=== PATIENT | male | born 1935 | race Caucasian/White ===

== ENCOUNTER 2018-09-26 12:52 | Emergency (ER) | payer MEDICARE, BC ==
[~2018-09-26] VITALS: Ht 165.1 cm; Wt 86.2 kg
[~2018-09-26 12:52] MED LIST: ALBU90OI INH; ALLO100 PO; ATEN50 PO; ATOR20 PO; AZIT500 PO; BIMA.03OPS OD; CARV25 PO; CODGUAEL PO; COLCHICINE0.6 MG PO; DOXE0.5 PO; DOXY100; LISI20 PO; LOSA50 PO; METO50ER PO; MULVIT PO; SPACER IH; WARF2 PO
[2018-09-26 13:20] LABS: BASOPHILS ABSOLUTE AUTO 0.05 K/mm3 (0.00-0.23); BASOPHILS PERCENT AUTO 1 % (0-2); EOSINOPHILS ABSOLUTE AUTO 0.24 K/mm3 (0.00-0.68); EOSINOPHILS PERCENT AUTO 3 % (0-6); Hematocrit 45.2 % (37.0-53.0); Hemoglobin 15.2 g/dL (13.5-17.5); IMMATURE GRAN ABSOLUTE AUTO 0.02 K/mm3 (0.00-0.10); IMMATURE GRAN PERCENT AUTO 0 % (0-1); LYMPHOCYTES ABSOLUTE AUTO 1.23 K/mm3 (0.84-5.20); LYMPHOCYTES PERCENT AUTO 13 % (21-46); MONOCYTES ABSOLUTE AUTO 0.63 K/mm3 (0.16-1.47); MONOCYTES PERCENT AUTO 7 % (4-13); Mean Corpuscular HGB 30.8 pg (26.0-34.0); Mean Corpuscular HGB Conc 33.6 g/dL (31.5-36.5); Mean Corpuscular Volume 92 fL (80-100); Mean Platelet Volume 10.5 fL (9.1-12.4); NEUTROPHILS ABSOLUTE AUTO 7.28 K/mm3 (1.96-9.15); NEUTROPHILS PERCENT AUTO 77 % (41-73); Platelet Count 158 K/mm3 (150-400); RDW Standard Deviation 43.9 fL (35.1-46.3); Red Blood Cell Count 4.94 M/mm3 (4.30-5.90); White Blood Cell Count 9.45 K/mm3 (4.00-11.30)
[2018-09-26 13:36] LABS: International Normalized Ratio 2.65; Prothrombin Time Results 25.8 Sec (9.7-11.5)
[2018-09-26 13:43] LABS: Albumin, Blood 3.6 g/dL (3.4-5.0); Bilirubin, Total 1.2 mg/dL (0.1-1.0); Bun/Creatinine Ratio 17.3 (12.0-20.0); Calcium, Blood 8.5 mg/dL (8.5-10.1); Creatinine, Blood 1.39 mg/dL (0.60-1.20); Globulin, Blood 3.7 g/dL (2.2-4.0); Potassium, Blood 4.5 mmol/L (3.5-5.5); Total Protein, Blood 7.3 g/dL (6.4-8.2)
[2018-09-26 14:01] LABS: Source, Urine Clean Catch
[2018-09-26 14:04] LABS: Appearance, Urine Cloudy (Clear); Bilirubin, Urine Neg (Neg); Blood, Urine 5+ (Neg); Color, Urine Brown (P-Yellow); Glucose Qualitative, Urine Neg (Neg); Ketones, Urine 1+ (Neg); Leukocyte Esterase, Urine 3+ (Neg); Nitrite, Urine Pos (Neg); Protein, Urine 4+ (Neg); Specific Gravity, Urine 1.015 (1.003-1.022); Urobilinogen, Urine NORM (Normal)
[2018-09-26 14:27] LABS: Bacteria Few /hpf; Red Blood Cells, Urine TNTC /hpf (0-2); Squamous Epithelial Cells Few /hpf (Few); White Blood Cells, Urine TNTC /hpf (0-5)
[2018-09-26] MEDS ORDERED: CEPH500 PO (14:48)
== END 2018-09-26 15:06 | disposition home or self-care (01) ==
LOC: ER 12:52
PROVIDERS: Physician Assistant
DX: N39.0 Urinary tract infection, site not specified (principal); Z79.01 Long term (current) use of anticoagulants; Z79.899 Other long term (current) drug therapy; I10 Essential (primary) hypertension; E78.5 Hyperlipidemia, unspecified; Z95.1 Presence of aortocoronary bypass graft
CPT/HCPCS: 36415; 80053; 81001; 85025; 85610; 87077; 87086; 87186; 99283

== ENCOUNTER 2018-10-09 09:06 | Emergency (ER) | payer MEDICARE, BC ==
[~2018-10-09] VITALS: Ht 165.1 cm; Wt 68.0 kg
[~2018-10-09 09:06] MED LIST changes: +CEPH500 PO
[2018-10-09 09:31] LABS: Source, Urine Catheter
[2018-10-09] MEDS ORDERED: NITR100CA (09:33)
[2018-10-09 09:36] LABS: BASOPHILS ABSOLUTE AUTO 0.06 K/mm3 (0.00-0.23); BASOPHILS PERCENT AUTO 1 % (0-2); EOSINOPHILS ABSOLUTE AUTO 0.26 K/mm3 (0.00-0.68); EOSINOPHILS PERCENT AUTO 3 % (0-6); Hematocrit 46.3 % (37.0-53.0); Hemoglobin 15.4 g/dL (13.5-17.5); IMMATURE GRAN ABSOLUTE AUTO 0.02 K/mm3 (0.00-0.10); IMMATURE GRAN PERCENT AUTO 0 % (0-1); LYMPHOCYTES ABSOLUTE AUTO 1.81 K/mm3 (0.84-5.20); LYMPHOCYTES PERCENT AUTO 22 % (21-46); MONOCYTES ABSOLUTE AUTO 0.62 K/mm3 (0.16-1.47); MONOCYTES PERCENT AUTO 8 % (4-13); Mean Corpuscular HGB 30.1 pg (26.0-34.0); Mean Corpuscular HGB Conc 33.3 g/dL (31.5-36.5); Mean Corpuscular Volume 91 fL (80-100); Mean Platelet Volume 10.4 fL (9.1-12.4); NEUTROPHILS ABSOLUTE AUTO 5.49 K/mm3 (1.96-9.15); NEUTROPHILS PERCENT AUTO 67 % (41-73); Platelet Count 208 K/mm3 (150-400); RDW Coefficient Variation 12.9 % (11.7-14.2); RDW Standard Deviation 42.2 fL (35.1-46.3); Red Blood Cell Count 5.11 M/mm3 (4.30-5.90); White Blood Cell Count 8.26 K/mm3 (4.00-11.30)
[2018-10-09 09:45] LABS: Albumin, Blood 3.7 g/dL (3.4-5.0); Albumin/Globulin Ratio 0.9 (0.8-1.8); Bilirubin, Total 1.1 mg/dL (0.1-1.0); Bun/Creatinine Ratio 25.7 (12.0-20.0); Calcium, Blood 8.4 mg/dL (8.5-10.1); Creatinine, Blood 1.91 mg/dL (0.60-1.20); Potassium, Blood 4.3 mmol/L (3.5-5.5); Total Protein, Blood 7.7 g/dL (6.4-8.2)
[2018-10-09 09:46] LABS: Bilirubin, Urine Neg (Neg); Blood, Urine 5+ (Neg); Glucose Qualitative, Urine Neg (Neg); Ketones, Urine 1+ (Neg); Leukocyte Esterase, Urine Neg (Neg); Nitrite, Urine Neg (Neg); Protein, Urine 4+ (Neg); Specific Gravity, Urine 1.015 (1.003-1.022); Urobilinogen, Urine NORM (Normal)
[2018-10-09 09:50] LABS: International Normalized Ratio 2.06; Prothrombin Time Results 20.4 Sec (9.7-11.5)
[2018-10-09 10:24] LABS: Appearance, Urine Bloody (Clear); Color, Urine Red (P-Yellow)
[2018-10-09 10:25] LABS: Red Blood Cells, Urine TNTC /hpf (0-2); Squamous Epithelial Cells Not Seen /hpf (Few); White Blood Cells, Urine 0-2 /hpf (0-5)
[2018-10-09 10:26] LABS: Bacteria Few /hpf
[2018-10-09] MEDS ORDERED: Flomax0.4 MG PO (10:50)
== END 2018-10-09 11:19 | disposition home or self-care (01) ==
LOC: ER 09:06
PROVIDERS: Emergency Medicine
DX: R33.9 Retention of urine, unspecified (principal); R31.9 Hematuria, unspecified; Z79.899 Other long term (current) drug therapy; Z79.01 Long term (current) use of anticoagulants; I10 Essential (primary) hypertension; I48.91 Unspecified atrial fibrillation; E78.5 Hyperlipidemia, unspecified
CPT/HCPCS: 51702; 51798; 80053; 81001; 85025; 85610; 99283

== ENCOUNTER → 2018-11-03 | Outpatient (CLI) | payer MEDICARE, BC ==
[~2018-11-03] MED LIST changes: +Flomax0.4 MG PO; +NITR100CA
== END | disposition home or self-care (01) ==
LOC: LAB SHORT 15:26 → PLD 15:26
DX: D48.5 Neoplasm of uncertain behavior of skin (principal)
CPT/HCPCS: 88305

== ENCOUNTER 2019-02-13 17:32 | Inpatient (IN) | payer MEDICARE, BC ==
[~2019-02-13] VITALS: Ht 165.1 cm; Wt 87.5 kg
[2019-02-13 18:23] LABS: BASOPHILS ABSOLUTE AUTO 0.06 K/mm3 (0.00-0.23); BASOPHILS PERCENT AUTO 0 % (0-2); EOSINOPHILS ABSOLUTE AUTO 0.01 K/mm3 (0.00-0.68); EOSINOPHILS PERCENT AUTO 0 % (0-6); Hematocrit 43.3 % (37.0-53.0); Hemoglobin 14.4 g/dL (13.5-17.5); IMMATURE GRAN ABSOLUTE AUTO 0.57 K/mm3 (0.00-0.10); IMMATURE GRAN PERCENT AUTO 3 % (0-1); LYMPHOCYTES ABSOLUTE AUTO 1.91 K/mm3 (0.84-5.20); LYMPHOCYTES PERCENT AUTO 9 % (21-46); MONOCYTES ABSOLUTE AUTO 1.71 K/mm3 (0.16-1.47); MONOCYTES PERCENT AUTO 8 % (4-13); Mean Corpuscular HGB 30.1 pg (26.0-34.0); Mean Corpuscular HGB Conc 33.3 g/dL (31.5-36.5); Mean Corpuscular Volume 91 fL (80-100); Mean Platelet Volume 10.6 fL (9.1-12.4); NEUTROPHILS ABSOLUTE AUTO 17.86 K/mm3 (1.96-9.15); NEUTROPHILS PERCENT AUTO 81 % (41-73); NRBC ABSOLUTE 0.05 K/mm3 (0.00-0.02); NRBC Auto 0.2 /100 WBC (0.0-0.2); Platelet Count 173 K/mm3 (150-400); RDW Coefficient Variation 12.7 % (11.7-14.2); RDW Standard Deviation 41.8 fL (35.1-46.3); Red Blood Cell Count 4.78 M/mm3 (4.30-5.90); White Blood Cell Count 22.12 K/mm3 (4.00-11.30)
[2019-02-13 18:38] LABS: Albumin, Blood 3.2 g/dL (3.4-5.0); Albumin/Globulin Ratio 0.8 (0.8-1.8); Bilirubin, Total 2.1 mg/dL (0.1-1.0); Calcium, Blood 8.2 mg/dL (8.5-10.1); Creatinine, Blood 2.61 mg/dL (0.60-1.20); Free Thyroxine 1.21 ng/dL (0.70-1.60); Magnesium, Blood 1.7 mg/dL (1.6-2.4); Total Protein, Blood 7.2 g/dL (6.4-8.2)
[2019-02-13 18:46] LABS: International Normalized Ratio 2.17; Prothrombin Time Results 21.4 Sec (9.7-11.5)
[2019-02-13] MEDS ORDERED: Xalatan2.5 ML BOTHEYES (18:49)
[2019-02-13] MEDS ORDERED: TAMS.4ER PO (18:50)
[2019-02-13 18:57] LABS: Creatine Kinase MB 37.4 ng/mL (0.0-3.6); Thyroid Stimulating Hormone 3.79 uIU/mL (0.360-4.800)
[2019-02-13 19:08] LABS: Creatine Kinase MB Index 2.3 (0.0-4.0); Troponin I 8.83 ng/mL (0.000-0.040)
--- NOTE | 2019-02-13 20:47 | NUR ---
PATIENT ARRIVED TO ICU 10 VIA GURNEY INTUBATED WITH TRAVEL VENT, AND RT AT BEDSIDE. ADMIT WITH DX OF CARDIOGENIC SHOCK POST CODE IN ER. DOCTOR GUPTA IN TO SEE PATIENT AND DOCTOR ESPARZA AND DOCTOR SANCHEZ AWARE OF PATIENT. HAS AMIODARONE 1MG, DOPAMINE 20MCG, PROPOFOL 20MCG, AND MAG RIDER INFUSING ON ADMIT. PATIENT TRANSFERRED TO ICU BED USING SLIDER SHEET AND PLACED ON ICU MONITORS. BILAT WRIST RESTRAINTS IN PLACE TO PREVENT ACCIDENTAL EXTUBATION DUE TO UNPREDICTABLE SEDATION AND BEHAVIOR. PATIENT AWAKENS TO VERBAL STIMULI, FOLLOWING SIMPLE DIRECTIONS. POST CARDIAC ARREST COOLING DC'D BY DOCTOR GUPTA DUE TO PATIENT BEING AWAKE.
--- NOTE | 2019-02-13 21:45 | NUR ---
Stat Echocardiogram completed. Spoke with Dr. Stewart.
[2019-02-13 22:30] LABS: Source, Urine Catheter
[2019-02-13 22:40] LABS: Appearance, Urine Cloudy (Clear); Bilirubin, Urine Neg (Neg); Blood, Urine 5+ (Neg); Color, Urine Yellow (P-Yellow); Glucose Qualitative, Urine Neg (Neg); Ketones, Urine 1+ (Neg); Leukocyte Esterase, Urine 3+ (Neg); Nitrite, Urine Neg (Neg); Protein, Urine 4+ (Neg); Specific Gravity, Urine 1.015 (1.003-1.022); Urobilinogen, Urine NORM (Normal)
[2019-02-13 22:46] LABS: White Blood Cells, Urine TNTC /hpf (0-5)
[2019-02-13 22:47] LABS: Bacteria Many /hpf; Red Blood Cells, Urine 0-2 /hpf (0-2); Squamous Epithelial Cells Not Seen /hpf (Few)
[2019-02-13 22:50] LABS: U Amphetamine Screen Not Detected; U Barbituate Screen Not Detected; U Benzodiazapine Screen Not Detected; U Buprenorphine Screen Not Detected; U Cannabinoids Screen Not Detected; U Cocaine Screen Not Detected; U Methadone Screen Not Detected; U Methamphetamine Screen Not Detected; U Opiates Screen Not Detected; U Oxycodone Screen Not Detected; U Phencyclidine Screen Not Detected; U Propoxyphene Screen Not Detected
[2019-02-13 23:03] LABS: PO2 Arterial 89.8 mmHg (80-100)
[2019-02-13 23:04] LABS: PCO2 Arterial 27.3 mmHg (35-45); pH Blood Arterial 7.26 (7.35-7.45)
[2019-02-14 01:46] LABS: International Normalized Ratio 2.28; Prothrombin Time Results 22.4 Sec (9.7-11.5)
--- NOTE | 2019-02-14 03:44 | NUR ---
UPDATE PATIENT WAS SEEN BY DOCTOR GUPTA, DOCTOR SANCHEZ, AND NOELLE TEMPLE MARKER. PATIENT HAD CENTRAL LINE PLACED TO LEFT IJ BY DOCTOR GUPTA. HAD CT OF ABD DONE TO EVAL HIS AAA, PLAVIX HELD UNTIL RESULTS FROM CT WAS OBTAINED. DOCTOR GUPTA MADE AWARE OF ELEVATED TROP I AND CT RESULTS AND PLAVIX GIVEN PER OG. HEPARIN ON HOLD AT THIS TIME DUE TO THERAPEUTIC INR, PHARMACY MONITORING. ATTEMPTING TO TITRATE DOPAMINE DOWN AND HAVE PATIENT RECEIVING LEVOPHED AND DOBUTAMINE, AND KEEP AMIODARONE AT 1MG UNTIL FURTHER ORDERS PER DOCTOR SANCHEZ. SEE FLOW SHEET FOR TITRATIONS. PROPOFOL CONTINUES AT 20 MCG FOR SEDATION.
[2019-02-14 04:38] LABS: BASOPHILS ABSOLUTE AUTO 0.05 K/mm3 (0.00-0.23); BASOPHILS PERCENT AUTO 0 % (0-2); EOSINOPHILS ABSOLUTE AUTO 0.02 K/mm3 (0.00-0.68); EOSINOPHILS PERCENT AUTO 0 % (0-6); Hematocrit 41.2 % (37.0-53.0); IMMATURE GRAN ABSOLUTE AUTO 0.13 K/mm3 (0.00-0.10); IMMATURE GRAN PERCENT AUTO 1 % (0-1); LYMPHOCYTES ABSOLUTE AUTO 1.65 K/mm3 (0.84-5.20); LYMPHOCYTES PERCENT AUTO 9 % (21-46); MONOCYTES ABSOLUTE AUTO 1.47 K/mm3 (0.16-1.47); MONOCYTES PERCENT AUTO 8 % (4-13); Mean Corpuscular HGB 30.4 pg (26.0-34.0); Mean Corpuscular Volume 89 fL (80-100); Mean Platelet Volume 10.4 fL (9.1-12.4); NEUTROPHILS ABSOLUTE AUTO 15.77 K/mm3 (1.96-9.15); NEUTROPHILS PERCENT AUTO 83 % (41-73); Platelet Count 191 K/mm3 (150-400); RDW Coefficient Variation 13.1 % (11.7-14.2); RDW Standard Deviation 42.8 fL (35.1-46.3); Red Blood Cell Count 4.61 M/mm3 (4.30-5.90); White Blood Cell Count 19.09 K/mm3 (4.00-11.30)
[2019-02-14 04:52] LABS: International Normalized Ratio 2.54; Prothrombin Time Results 24.7 Sec (9.7-11.5)
[2019-02-14 05:00] LABS: Albumin, Blood 2.8 g/dL (3.4-5.0); Albumin/Globulin Ratio 0.8 (0.8-1.8); Bilirubin, Total 1.4 mg/dL (0.1-1.0); Bun/Creatinine Ratio 20.2 (12.0-20.0); Calcium, Blood 7.8 mg/dL (8.5-10.1); Creatinine, Blood 2.28 mg/dL (0.60-1.20); Globulin, Blood 3.7 g/dL (2.2-4.0); Magnesium, Blood 2.3 mg/dL (1.6-2.4); Total Protein, Blood 6.5 g/dL (6.4-8.2)
[2019-02-14 05:19] LABS: PCO2 Arterial 27.6 mmHg (35-45); PO2 Arterial 65.6 mmHg (80-100); pH Blood Arterial 7.33 (7.35-7.45)
--- NOTE | 2019-02-14 06:27 | NUR ---
SUMMARY PATIENT REMAINS INTUBATED AND SEDATED WITH PROPOFOL AT 15MCG. PATIENT COUGH AND GRIMACING WITH STIMULI. BILAT WRIST RESTRAINTS IN PLACE. AMIODARONE, LEVOPHED, DOPAMINE, DOBUTAMINE DRIPS CONTINUE SEE FLOW SHEET FOR TITRATIONS, GOAL IS TO GET DOPAMINE OFF. OG CLAMPED.
--- NOTE | 2019-02-14 14:19 | NUR ---
BUSINESS REPRESENTATIVE PT LEFT TO BUSINESS REPRESENTATIVE APPOX. 0900 ACCOMPANIED BY RT, TWO RN'S AND TECHS FROM BUSINESS REPRESENTATIVE. PT RECIEVED PAC IN LEFT FEM VEIN, ART LINE IN LEFT FEM ARTERY, AND IMPELLA CP IN RIGHT FEM ARTERY. PT HAD MANY TITRATIONS OF LEVOPHED, DOPAMINE, AND DOBUTAMINE DURING BUSINESS REPRESENTATIVE PROCEDURES, SEE BUSINESS REPRESENTATIVE NOTE. PT BACK TO ICU AROUND 1215.
--- NOTE | 2019-02-14 14:39 | NUR ---
UPDATE ON PATIENT PT HAS IMPELLA CP IN RIGHT FEMORAL ARTERY @ 97.5CM PLACEMENT, FLOWS 3.0-3.2L/MIN. ART LINE IS IN LEFT FEMORAL ARTERY MAP'S HAVE BEEN 60-90. PAC IS IN LEFT FEMORAL VEIN AT 70 CM. PT HAS LEVO 15MCG/MIN, DOPAMINE 10MCG/KG/MIN, DOBUTAMINE 2.5MCG/KG/MIN, PROPOFOL 15MCG/KG/MIN, AMIO 0.5MG/MIN, AND SALINE AT 25ML/HR RUNNING IN QUAD LUMEN LEFT IJ. PT IS BEING TRANSPORTED TO [facility].
== END 2019-02-14 15:09 | disposition short-term general hospital (02) | DRG 286 ==
LOC: ER 17:32 → ICUW 20:33
PROVIDERS: Emergency Medicine; Internal Medicine Critical Care Medicine; Nurse Practitioner Acute Care; ADMIT Internal Medicine
PROC: 02HV33Z Insertion of Infusion Device into Superior Vena Cava, Percutaneous Approach (ICD-10-PCS; 2019-02-13)
PROC: 0BH17EZ Insertion of Endotracheal Airway into Trachea, Via Natural or Artificial Opening (ICD-10-PCS; 2019-02-13)
PROC: 3E043XZ Introduction of Vasopressor into Central Vein, Percutaneous Approach (ICD-10-PCS; 2019-02-13)
PROC: 4A023N7 Measurement of Cardiac Sampling and Pressure, Left Heart, Percutaneous Approach (ICD-10-PCS; principal; 2019-02-14)
PROC: B211YZZ Fluoroscopy of Multiple Coronary Arteries using Other Contrast (ICD-10-PCS; 2019-02-14)
DX: I25.10 Atherosclerotic heart disease of native coronary artery without angina pectoris (principal); I50.43 Acute on chronic combined systolic (congestive) and diastolic (congestive) heart failure; I49.01 Ventricular fibrillation; R57.0 Cardiogenic shock; I46.9 Cardiac arrest, cause unspecified; I13.0 Hypertensive heart and chronic kidney disease with heart failure and stage 1 through stage 4 chronic kidney disease, or unspecified chronic kidney disease; I47.2 Ventricular tachycardia; I24.0 Acute coronary thrombosis not resulting in myocardial infarction; N18.9 Chronic kidney disease, unspecified; Z95.1 Presence of aortocoronary bypass graft; I71.4 Abdominal aortic aneurysm, without rupture; I48.2 Chronic atrial fibrillation; I95.9 Hypotension, unspecified
CPT/HCPCS: 31500; 31720; 33990; 36415; 36556; 36600; 51702; 71045; 74150; 80053; 81001; 82330; 82550; 82553; 82803; 83605; 83735; 83880; 84100; 84439; 84443; 84484; 84550; 85025; 85347; 85610; 85730; 87077; 87086; 87186; 92950; 93005; 93010; 93306; 93461; 94002; 94003; 96365-59; 96366-59; 96367-59; 96368; 96375-59; 99152; 99153; 99291-25; 99292; C1751; C1760; C1769; C1894; C9113; J0282; J0330; J0461; J0610; J0696; J1250; J1265; J1644; J2250; J2704; J3475; J7030; J7040; J7060; Q9967